=== PATIENT | female | born 1995 | race Caucasian/White ===

== ENCOUNTER 2018-12-20 08:02 | Day surgery (SDC) | payer BC ==
--- NOTE | 2018-12-18 15:51 | HP ---
DATE OF SURGERY: 12/20/2018 ANTICIPATED PROCEDURE: Cholecystectomy. HISTORY OF PRESENT ILLNESS: The patient has right upper quadrant pain, seen and examined. Procedure discussed in detail and wished to proceed. Gallbladder dyskinesia. HIDA scan 23%. PAST MEDICAL HISTORY: ALLERGIES: NONE. MEDICATIONS: None. PAST SURGICAL HISTORY: None. SOCIAL HISTORY: Negative. FAMILY HISTORY: Negative. REVIEW OF SYSTEMS: Negative. PHYSICAL EXAMINATION: VITAL SIGNS: Normal. CHEST: Clear. COR: Regular. ABDOMEN: Satisfactory. IMPRESSION: Gallbladder dyskinesia. PLAN: Laparoscopic cholecystectomy.
[~2018-12-20 08:02] MED LIST: DIPRIVAN 200 MG/20 ML IV ONE; Lactated Ringers 1,000 ML IV ONE; Lactated Ringers 1,000 ML IV SCH; SUBLIMAZE 250 MCG/5 ML ONE; Sensorcaine 0.25% 10 ML ONE; Versed 2 MG/2 ML Injection ONE; Zemuron 100 MG/10 ML ONE
[2018-12-20] MEDS ORDERED: MEFOXIN 2 GM PREMIX** 2 GM/50 ML ML IV ONE ×2 (08:47→08:52)
[2018-12-20] MEDS ORDERED: MEFOXIN 2 GM PREMIX** 50 ML IV ONE (08:49)
[2018-12-20] MEDS ORDERED: Zofran 4 MG/2 ML VIAL ONE (09:06)
[2018-12-20] MEDS ORDERED: TORAdol 30 mg Injection ONE (09:06)
[2018-12-20] MEDS ORDERED: Decadron 4 MG INJ ONE (09:06)
[2018-12-20] MEDS ORDERED: BRIDION 200MG/2ML IV ONE (10:06)
[2018-12-20] MEDS ORDERED: MORPHINE SULFATE 10 MG/ML ONE (10:31)
[2018-12-20] MEDS ORDERED: SUBLIMAZE 100 MCG/2 ML ONE (10:31)
[2018-12-20] MEDS ORDERED: Compazine 10 MG/2 ML ONE (10:52)
[2018-12-20] MEDS ORDERED: DILAUDID 2 MG INJECTION ONE (11:04)
--- NOTE | 2018-12-20 11:39 | OP ---
SURGERY DATE/TIME: 12/20/2018 0939 PREOPERATIVE DIAGNOSIS: Gallbladder dyskinesia. POSTOPERATIVE DIAGNOSIS: Gallbladder dyskinesia. PROCEDURE: Laparoscopic cholecystectomy. SURGEON: Dr. Murguia. ANESTHESIA: General endotracheal tube. COMPLICATIONS: None. CONDITION: Stable. INDICATIONS: A patient with upper abdominal pain, ultrasound negative and HIDA scan positive. Seen and examined. Procedure discussed in detail and wished to proceed. DESCRIPTION OF PROCEDURE AND FINDINGS: Taken to surgery. General anesthetic, routine prep and drape. Veress needle inserted. Opening pressure of 1, insufflating pressure 14. Four - 5's. Good visualization. Cystic duct defined. Cystic artery defined. There was inflammation in this area. They were both triply clipped. Clips noted across and well approximated. Gallbladder rolled out of gallbladder fossa. The gallbladder delivered through upper abdominal port with minimal widening. Hole closure device with 0 Vicryl was used at this port. Field was totally dry. CO2 was exsufflated. Skin closed with 4-0 Vicryl and Steri-Strips. The patient tolerated the procedure satisfactorily.
[2018-12-20 13:16] VITALS: BP 115/76; PULSE 77; O2SAT 94
== END 2018-12-20 13:05 | disposition home or self-care (01) ==
LOC: SDC 08:02
PROVIDERS: ATTEND Surgery
DX: K82.8 Other specified diseases of gallbladder (principal)
CPT/HCPCS: 84703; 88304; J0694; J1100; J1170; J1885; J2250; J2270; J2405; J2704; J3010